=== PATIENT | male | born 1965 | race Caucasian/White ===

== ENCOUNTER 2024-12-13 07:45 | Emergency (ER) | payer BC ==
[~2024-12-13] VITALS: Ht 172.7 cm; Wt 70.0 kg
--- NOTE | 2024-12-13 08:00 | ECG ---
[facility] Test Date: 2024-12-13 Test Time: 07:57:18 Pat Name: SELMA ROBERT Department: ER Room: Gender: Pest Locator: [place] : 1965 Requested By: OLIVIA HUBER Order Number: [id number] Reading MD: Wood Riley Measurements Intervals [place] Rate: 73 P: 75 RI: 163 QRS: 67 QRSD: 86 T: 61 QT: 362 QTc: 399 Interpretive Statements Sinus rhythm Consider left atrial enlargement Electronically Signed On 12-13-2024 20:14:48 PDT by Wood Riley Please click the below link to view image of tracing.
--- NOTE | 2024-12-13 08:16 | ED.PDOC ---
History of Present Illness HPI Comments 59 year old male presents to the ED for the c/c of Flu-Like Symptoms. Pt states that he has been experiencing a mild fever and cough since Sunday but has since worsened today. Pt notes of pain upon coughing and swallowing at this time. Pt notes the he took an at home Covid Test and result was negative. No other associated Modifiers or Symptoms at this time. Chief Complaint: Flu like Time Seen by MD: 08:12 Reviewed Notes: Nurses Notes, Medications, Allergies Allergies: Coded Allergies: NO KNOWN ALLERGIES (Unverified , 12/13/24) Information Source: Patient Mode of Arrival: Ambulatory Severity: Moderate Timing: Days Duration: Since onset, Days Prehospital treatment: None Past Medical History PAST MEDICAL HISTORY: Denies Surgical History: Denies all surgeries Family History Family History: Reviewed,noncontributory to illness, No family hx of Cancer, No family hx of DM, No family hx of Heart delmer, No family hx of HTN, No family hx ofKidney delmer, No family hx of Liver delmer, No family hx of Lung delmer, No family hx of Stroke Social History Smoker: Non-Smoker Alcohol: Denies ETOH Use Drugs: Denies Drug Use Lives In: Home Constitutional: reports: fever; denies: chills, diaphoresis, fatigue, malaise, sweats, weakness, others EENTM: denies: blurred vision, double vision, ear bleeding, ear discharge, ear drainage, ear pain, ear ringing, eye pain, eye redness, hearing loss, mouth pain, mouth swelling, nasal discharge, nose bleeding, nose congestion, nose pain, photophobia, tearing, throat pain, throat swelling, voice changes, others Respiratory: reports: cough; denies: hemoptysis, orthopnea, SOB at rest, shortness of breath, SOB with excertion, stridor, wheezing, others Cardiovascular: denies: chest pain, dizzy spells, diaphoresis, Dyspnea on exertion, edema, irregular heart beat, left arm pain, lightheadedness, palpitations, PND, syncope, others Gastrointestinal: denies: abdomen distended, abdominal pain, blood streaked bowels, constipated, diarrhea, dysphagia, difficulty swallowing, hematemesis, melena, nausea, poor appetite, poor fluid intake, rectal bleeding, rectal pain, vomiting, others Genitourinary: denies: burning, dysuria, flank pain, frequency, hematuria, incontinence, penile discharge, penile sore, pain, testicle pain, testicle swelling, urgency, others Neurological: denies: dizziness, fainting, headache, left sided numbness, left sided weakness, numbness, paresthesia, pre-existing deficit, right sided numbness, right sided weakness, seizure, speech problems, tingling, tremors, weakness, others Musculoskeletal: denies: back pain, gout, joint pain, joint swelling, muscle pain, muscle stiffness, neck pain, others Integumetry: denies: bruises, change in color, change in hair/nails, dryness, laceration, lesions, lumps, rash, wounds, others Allergic/Immunocompromised: denies: Difficulty Healing, Frequent Infections, Hives, Itching, others Hematologic/Lymphatic: denies: anemia, blood clots, easy bleeding, easy bruising, swollen glands, others Endocrine: denies: excessive hunger, excessive sweating, excessive thirst, excessive urination, flushing, intolerance to cold, intolerance to heat, unexplained weight gain, unexplained weight loss, others Psychiatric: denies: anxiety, bipolar disorder, depression, hopeless, panic disorder, schizophrenia, sleepless, suicidal, others All Other Systems: Reviewed and Negative Physical Exam General Appearance: No Apparent Distress, Normal, Other (Fever and flu syndrome) HEENT: Normal ENT Inspection, PERRL/EOMI, Pharynx Normal, TMs Normal Neck: Full Range of Motion, Non-Tender, Normal, Normal Inspection Respiratory: Lungs Clear, No Accessory Muscle Use, No Respiratory Distress, Normal Breath Sounds, Other (Patient with some chest pain when it coughs and red throat) Cardiovascular: No Edema, No JVD, No Murmur, Normal Peripheral Pulses, Regular Rate/Rhythm Breast Exam: Deferred Gastrointestinal: Non Tender, No Pulsatile Mass, Normal Bowel Sounds, Soft Genitalia: Deferred Pelvic: Deferred Rectal: Deferred Extremities: No calf tenderness, Normal capillary refill, Normal inspection, Normal range of motion, Non-tender, No pedal edema Musculoskeletal : Apperance: Normal Neurologic: Alert, No Motor Deficits, Normal Mood Cerebellar Function: Normal Reflexes: Normal Skin: Dry, Normal Color, Warm Peripheral Pulses: 1+ carotid (R), 1+ carotid (L) Lymphatic: No Adenopathy Was a procedure done? Was a procedure done?: No EKG EKG : Pulse Rate (adult): 73 [place]: Normal Cardiac Rhythm: NSR Hypertrophy: LAE Differential Dx Considerations may include: Flu syndrome bronchitis pharyngitis X-Ray, Labs, Meds, VS Vital Signs Date Time Temp Pulse Resp B/P (MAP) Pulse Ox O2 Delivery O2 Flow Rate FiO2 12/13/24 08:25 73 12/13/24 08:18 74 20 97 Room Air* 0 21 12/13/24 07:57 73 12/13/24 07:50 Room Air* 0 21 12/13/24 07:50 98.3 92 20 111/67 (82) 97 98.3 12/13/24 07:50 98.3 92 20 111/67 (82) 97 98.3 Lab Test 12/13/24 08:19 Range/Units Influenza Type A Antigen Negative Negative Influenza Type B Antigen Negative Negative X-Ray, Labs, Meds, VS Comment Course in the emergency department eventful patient has cough and congestion and fever and also some chest pains when he coughs Influenza a negative Influenza B negative Patient will be treated for his fever and sore throat be discharged home to follow up with his PCP Time of 1ST Reevaluation: 08:42 Reevaluation 1ST: Unchanged Time of 2ND Reevaluation: 09:26 Reevaluation 2ND: Unchanged Consultation: PCP Patient Education/Counseling: Diagnosis, Treatment, Prognosis, Need For Follow Up Family Education/Counseling: Diagnosis, Treatment, Prognosis, Need For Follow Up, No Family Present SEPSIS Sepsis Screen Date sepsis recognized/suspect: Dec 13, 2024 Time Sepsis recognized/suspect: 075 Recent Procedure: No On Antibiotic Therapy: No Respiratory Rate >20: No Heart Rate >90: No Temp<36 C (96.8 F) or >38.3 C: No SBP <90 or MAP <65 mmHG: No New Acute Mental Status Change: No Is the patient on CPAP, BIPAP,: No Vital Signs Date Time Temp Pulse Resp B/P (MAP) Pulse Ox O2 Delivery O2 Flow Rate FiO2 12/13/24 08:25 73 12/13/24 08:18 74 20 97 Room Air* 0 21 12/13/24 07:57 73 12/13/24 07:50 Room Air* 0 21 12/13/24 07:50 98.3 92 20 111/67 (82) 97 98.3 12/13/24 07:50 98.3 92 20 111/67 (82) 97 98.3 Departure 1 Departure Time of Disposition: 09:26 Impression: Primary Impression: Febrile illness Additional Impression: Acute pharyngitis Qualified Codes: J02.9 - Acute pharyngitis, unspecified Disposition: HOME / SELF CARE / HOMELESS Condition: Fair Additional Instructions: Gargle with salt and water and follow up with your PCP e-Prescriptions Azithromycin (Zithromax) 500 Mg Tab 1 TAB PO DAILY for 5 Days, #5 TAB Prov: OLIVIA HUBER MD 12/13/24 Discharged With: Self Critical Care Note Critical Care Time?: No Stability Stability form required: No Heart Score Heart Score: Heart Score Response (Comments) Value History N/A 0 EKG Normal 0 Age 45-64 1 Risk Factors No known risk factors 0 Troponin N/A 0 Total 1 I personally scribed for OLIVIA HUBER MD ([email or web address]) on 12/13/24 at 08:16. Electronically submitted by Kedar Dias ([email or web address]). OLIVIA HUBER MD Dec 13, 2024 08:16
[2024-12-13 08:18] VITALS: PULSE 74; RESP 20; O2SAT 97
[2024-12-13 08:47] LABS: Rapid Influenza A Negative (Negative); Rapid Influenza B Negative (Negative)
[2024-12-13] MEDS ORDERED: AZIT500T PO (09:31)
[2024-12-13 09:44] VITALS: BP 127/81; PULSE 89; RESP 16; TEMP 98.9; O2SAT 96
== END 2024-12-13 09:50 | disposition home or self-care (01) ==
LOC: ER 07:45
DX: J02.9 Acute pharyngitis, unspecified (principal); R50.9 Fever, unspecified; Z79.899 Other long term (current) drug therapy
CPT/HCPCS: 87804; 93005

== ENCOUNTER 2024-12-15 18:14 | Emergency (ER) | payer BC ==
[~2024-12-15] VITALS: Ht 172.7 cm; Wt 68.5 kg
[~2024-12-15 18:14] MED LIST: AZIT500T PO
[2024-12-15 18:37] VITALS: BP 147/92; PULSE 106; RESP 18; TEMP 99.7; O2SAT 98
--- NOTE | 2024-12-15 19:17 | ED.PDOC ---
HPI Comments 59 y.o male presents to the ED for a chief complaint of a fever and chest pain that started one week ago. Patient reports being seen for symptoms 2 days ago, was diagnosed with pharyngitis and discharged but denies any sore throat or alleviation from chest pain. Patient states pain radiates to his back, is constant, and sharp. Patient has been using Motrin and Day Quil with some fever break throughs but states fever reappears. Upon ED arrival, patient presents with a temperature of 99.7 F. He denies any SOB, nausea, vomiting, fever, or chills. Chief Complaint: Fever Time Seen by MD: 19:05 Primary Care Provider: UNKNOWN Reviewed Notes: Nurses Notes, Medications, Allergies Allergies: Coded Allergies: NO KNOWN ALLERGIES (Unverified , 12/13/24) Home Meds Active Scripts Levofloxacin Hemihydrate (LEVAQUIN 500 MG) 500 Mg Tab, 1 TAB PO DAILY, #10 TAB Prov:MAGDA ARIAS MD 12/15/24 Azithromycin (Zithromax) 500 Mg Tab, 1 TAB PO DAILY for 5 Days, #5 TAB Prov:OLIVIA HUBER MD 12/13/24 Information Source: Patient Mode of Arrival: Ambulatory Severity: Moderate Timing: Weeks (1) Duration: Since onset Location: Substernal Radiation: Back Quality: Sharp Onset: At Rest Cardiac Risk Factors: None PE Risk Factors: None History of: Similar pain in past Modifying Factors: Nothing Past Medical History PAST MEDICAL HISTORY: Denies Surgical History: Denies all surgeries Family History Family History: Reviewed,noncontributory to illness, No family hx of Cancer, No family hx of DM, No family hx of Heart delmer, No family hx of HTN, No family hx ofKidney delmer, No family hx of Liver delmre, No family hx of Lung delmer, No family hx of Stroke Social History Smoker: Non-Smoker Alcohol: Denies ETOH Use Drugs: Denies Drug Use Lives In: Home Constitutional: reports: fever; denies: chills, diaphoresis, fatigue, malaise, sweats, weakness, others EENTM: denies: blurred vision, double vision, ear bleeding, ear discharge, ear drainage, ear pain, ear ringing, eye pain, eye redness, hearing loss, mouth pain, mouth swelling, nasal discharge, nose bleeding, nose congestion, nose pain, photophobia, tearing, throat pain, throat swelling, voice changes, others Respiratory: denies: cough, hemoptysis, orthopnea, SOB at rest, shortness of breath, SOB with excertion, stridor, wheezing, others Cardiovascular: reports: chest pain; denies: dizzy spells, diaphoresis, Dyspnea on exertion, edema, irregular heart beat, left arm pain, lightheadedness, palpitations, PND, syncope, others Gastrointestinal: denies: abdomen distended, abdominal pain, blood streaked bowels, constipated, diarrhea, dysphagia, difficulty swallowing, hematemesis, melena, nausea, poor appetite, poor fluid intake, rectal bleeding, rectal pain, vomiting, others Genitourinary: denies: burning, dysuria, flank pain, frequency, hematuria, incontinence, penile discharge, penile sore, pain, testicle pain, testicle swelling, urgency, others Neurological: denies: dizziness, fainting, headache, left sided numbness, left sided weakness, numbness, paresthesia, pre-existing deficit, right sided numbness, right sided weakness, seizure, speech problems, tingling, tremors, weakness, others Musculoskeletal: reports: back pain; denies: gout, joint pain, joint swelling, muscle pain, muscle stiffness, neck pain, others Integumetry: denies: bruises, change in color, change in hair/nails, dryness, laceration, lesions, lumps, rash, wounds, others Allergic/Immunocompromised: denies: Difficulty Healing, Frequent Infections, Hives, Itching, others Hematologic/Lymphatic: denies: anemia, blood clots, easy bleeding, easy bruising, swollen glands, others Endocrine: denies: excessive hunger, excessive sweating, excessive thirst, excessive urination, flushing, intolerance to cold, intolerance to heat, unexplained weight gain, unexplained weight loss, others Psychiatric: denies: anxiety, bipolar disorder, depression, hopeless, panic disorder, schizophrenia, sleepless, suicidal, others All Other Systems: Reviewed and Negative Physical Exam General Appearance: No Apparent Distress HEENT: Normal ENT Inspection, Pharynx Normal, TMs Normal Neck: Full Range of Motion, Non-Tender, Normal, Normal Inspection Respiratory: Chest Non-Tender, No Accessory Muscle Use, Rhonchi Cardiovascular: No Edema, No JVD, No Murmur, No Gallop, Normal Peripheral Pulses, Regular Rate/Rhythm Breast Exam: Deferred Gastrointestinal: No Organomegaly, Non Tender, No Pulsatile Mass, Normal Bowel Sounds, Soft Genitalia: Deferred Pelvic: Deferred Rectal: Deferred Extremities: No calf tenderness, Normal capillary refill, Normal inspection, Normal range of motion, Non-tender, No pedal edema Musculoskeletal : Apperance: Normal Neurologic: Alert, computer meteorologist II-XII nml as Tested, No Motor Deficits, Normal Affect, Normal Mood, No Sensory Deficits Cerebellar Function: Normal Reflexes: Normal Skin: Dry, Normal Color, Warm Lymphatic: No Adenopathy Was a procedure done? Was a procedure done?: No CP Differential Dx Differential Diagnosis: Electrolyte Disorder Differential Diagnosis: Angina, Costochondritis, Pericarditis X-Ray, Labs, Meds, VS Vital Signs Date Time Temp Pulse Resp B/P (MAP) Pulse Ox O2 Delivery O2 Flow Rate FiO2 12/15/24 18:37 99.7 106 18 147/92 (110) 98 99.7 Lab Test 12/15/24 19:18 Range/Units White Blood Count 10.3 4.4-10.8 10^3/uL Red Blood Count 5.43 4.5-5.90 10^6/uL Hemoglobin 16.2 13.5-17.5 g/dL Hematocrit 47.3 41.0-53.0 % Mean Corpuscular Volume 87.1 80.0-100.0 fL Mean Corpuscular Hemoglobin 29.8 28.0-32.0 pg Mean Corpuscular Hemoglobin Concent 34.3 32.0-36.0 g/dL Red Cell Distribution Width 12.6 11.8-14.3 % Platelet Count 285 140-450 10^3/uL Mean Platelet Volume 7.8 6.9-10.8 fL Neutrophils (%) (Auto) 78.6 37.0-80.0 % Lymphocytes (%) (Auto) 11.4 10.0-50.0 % Monocytes (%) (Auto) 6.4 0.0-12.0 % Eosinophils (%) (Auto) 3.3 0.0-7.0 % Basophils (%) (Auto) 0.3 0.0-2.0 % Neutrophils # (Auto) 8.1 1.6-8.6 10 ^3/uL Lymphocytes # (Auto) 1.2 0.4-5.4 10 ^3/uL Monocytes # (Auto) 0.7 0-1.3 10 ^3/uL Eosinophils # (Auto) 0.3 0-0.8 10 ^3/uL Basophils # (Auto) 0 0-0.2 10 ^3/uL Nucleated Red Blood Cells 0.0 % Sodium Level 141 136-145 mmol/L Potassium Level 4.0 3.5-5.1 mmol/L Chloride Level 103 98-107 mmol/L Carbon Dioxide Level 30 20-31 mmol/L Anion Gap 8 5-15 Blood Urea Nitrogen 17 9-23 mg/dL Creatinine 1.06 0.700-1.30 mg/dL Glomerular Filtration Rate Calc 80 >90 mL/min BUN/Creatinine Ratio 16.0 10.0-20.0 Serum Glucose 127 H 74-106 mg/dL Calcium Level 10.5 H 8.7-10.4 mg/dL B-Type Natriuretic Peptide 9.55 0-100 pg/mL EXAM: XY CHEST TWO VIEWS ROUTINE IMPRESSION: Mild Mixed perihilar opacities which could reflect pneumonia or atelectasis The patient is being given Levaquin 500 mg by mouth The patient's CBC and chemistry panel are within normal limits. The patient is also being given a prescription of Levaquin The patient will return to the emergency department's the condition worsens Images Reviewed?: Images reviewed and evaluated by me Time of 1ST Reevaluation: 19:16 Reevaluation 1ST: Unchanged Patient Education/Counseling: Diagnosis, Treatment, Prognosis, Need For Follow Up Family Education/Counseling: No Family Present SEPSIS Sepsis Screen Date sepsis recognized/suspect: Dec 15, 2024 Time Sepsis recognized/suspect: 1829 Recent Procedure: No On Antibiotic Therapy: No Respiratory Rate >20: No Heart Rate >90: Yes Temp<36 C (96.8 F) or >38.3 C: No SBP <90 or MAP <65 mmHG: No New Acute Mental Status Change: No Is the patient on CPAP, BIPAP,: No Physician Orders Chest Two Views Routine (12/15/24 19:07) Covid19 Antigen [place]ivid[place] (12/15/24 ) Vital Signs Date Time Temp Pulse Resp B/P (MAP) Pulse Ox O2 Delivery O2 Flow Rate FiO2 12/15/24 18:37 99.7 106 18 147/92 (110) 98 99.7 Laboratory Tests Test 12/15/24 19:18 White Blood Count 10.3 10^3/uL (4.4-10.8) Departure 1 Departure Time of Disposition: 20:54 Impression: Primary Impression: Pneumonia Qualified Codes: J18.9 - Pneumonia, unspecified organism Disposition: HOME / SELF CARE / HOMELESS Condition: Fair e-Prescriptions Levofloxacin Hemihydrate (LEVAQUIN 500 MG) 500 Mg Tab 1 TAB PO DAILY, #10 TAB Prov: MAGDA ARIAS MD 12/15/24 Discharged With: Self Critical Care Note Critical Care Time?: No Stability Stability form required: No Heart Score Heart Score: Heart Score Response (Comments) Value History N/A 0 EKG N/A 0 Age 45-64 1 Risk Factors No known risk factors 0 Troponin N/A 0 Total 1 I personally scribed for MAGDA ARIAS MD ([email or web address]) on 12/15/24 at 19:17. Electronically submitted by Caitlin Mcfadden ([facility]). I personally scribed for MAGDA ARIAS MD ([email or web address]) on 12/15/24 at 20:16. Electronically submitted by Caitlin Mcfadden ([facility]). MAGDA ARIAS MD Dec 15, 2024 19:17
[2024-12-15 19:39] LABS: Chloride 103 mmol/L (98-107); Potassium 4.0 mmol/L (3.5-5.1); Sodium 141 mmol/L (136-145)
[2024-12-15 19:40] LABS: Anion Gap 8 (5-15); Carbon Dioxide 30 mmol/L (20-31)
[2024-12-15 19:43] LABS: Calcium 10.5 mg/dL (8.7-10.4)
[2024-12-15 19:45] LABS: BUN/Creatinine Ratio 16.0 (10.0-20.0); Blood Urea Nitrogen 17 mg/dL (9-23); Hematocrit 47.3 % (41.0-53.0); Hemoglobin 16.2 g/dL (13.5-17.5); Mean Corpuscular Hemoglobin 29.8 pg (28.0-32.0); Mean Corpuscular Volume 87.1 fL (80.0-100.0); Nucleated Red Blood Cells % 0.0 %
[2024-12-15 19:49] LABS: Glucose 127 mg/dL (74-106)
--- NOTE | 2024-12-15 19:58 | DVH ---
EXAM: XY CHEST TWO VIEWS ROUTINE CLINICAL HISTORY: cough TECHNIQUE: Frontal and lateral views of the chest WID: COMPARISON: None FINDINGS: Lines and tubes: None Chest: The heart size and pulmonary vasculature is within normal limits. Mixed perihilar opacities. No pleural effusion or pneumothorax. The osseous structures are grossly intact. IMPRESSION: Mild Mixed perihilar opacities which could reflect pneumonia or atelectasis
[2024-12-15] MEDS: levoFLOXacin 500 MG TAB PO ONE (21:00)
[2024-12-15] MEDS ORDERED: LEVO500T91 PO (21:01)
== END 2024-12-16 01:13 | disposition home or self-care (01) ==
LOC: ER 18:21
DX: J18.9 Pneumonia, unspecified organism (principal); R06.02 Shortness of breath; Z79.899 Other long term (current) drug therapy
CPT/HCPCS: 36415; 71046; 80048; 83880; 85025